=== PATIENT | male | born 1950 ===

== ENCOUNTER 2025-03-29 00:40 | Day surgery (SDC) | payer MEDICARE, SELFPAY ==
[2025-03-28 11:17] VITALS: BMI 25.8
--- OUTSIDE RECORDS SUMMARY | 2025-03-29 00:48 | XMS_ITS | Encounter Summary ---
Author Organization [facility] Address [address] [place] [address] Phone Care Team Providers Care Registered Nurse Hh Case Manager Name Role Phone Jadiel Nielsen MD Primary Care Provider Andi Arceo MD Unavailable [phone] Jadiel Camargo MD Unavailable [phone] Encounter Details Date Type Department Care Team (Late st Contact Info) Description 11/26/2017 Orders Only [facility] Provider, MD Francine [address] [place] [id number] Social History Tobacco Use Types Packs/Day Years Used Date Smoking Tobacco: Never Alcohol Use Standard Drinks/Week Comments Yes 0 (1 standard drink = 0.6 oz pur e alcohol) Sex and Gender Information Value Date Recorded Sex Assigned at Not on file Legal Sex Male 3:35 PM COMMISSIONS ANALYST Gender Identity Not on file Sexual Orientation Straight 08/14/2020 10 :55 AM CDT documented as of this encounter Plan of Treatment Upcoming Encounters Date Type Department Care Team (Late st Contact Info) Description 09/22/2025 7:30 AM COMMISSIONS ANALYST Hospital Encounter [facility] [address] [place] [address] Ernie Richardson, DO [address] [place] [address] [place] [address] 09/22/2025 7:30 AM COMMISSIONS ANALYST - 09/22/2025 8:00 AM COMMISSIONS ANALYST Surgery [facility] [address] [place] [address] Ernie Richardson, 4 [facility] [address] [address] COLONOSCOPY Scheduled Procedures Name Priority Associated Diagnoses Date/Ti me COLONOSCOPY Family history of colon cancer in mother History of colonic polyps Encounter for screening colonoscopy 09/22/2025 7:30 AM COMMISSIONS ANALYST documented as of this encounter Procedures Procedure Name Priority Date/Time Associated Diagnosis Comments DISCHARGE LABORATORY CUMULATIVE REPORT 11/26/2017 12:00 AM COMMISSIONS ANALYST documented in this encounter Results * DISCHARGE LABORATORY CUMULATIVE REPORT (11/26/2017 12:00 AM COMMISSIONS ANALYST) Narrative 11/26/2017 12:00 AM COMMISSIONS ANALYST Ordered by an unspecified provider. us Historical Provider LAB BLOOD ORDERABLES Sarah l Result documented in this encounter Visit Diagnoses Not on filedocumented in this encounter Additional Health Concerns Infection Onset Date Last Indicated Resolved Time COVID: Suspected 06/30/2024 06/30/2024 06/30/2024 9:41 AM CDT documented as of this encounter Care Teams Registered Nurse Hh Case Manager Relationship Specialty Start Date End Date Jadiel Nielsen MD PCP - General 06/13/14 Andi Arceo MD Consulting Physician Cardiovascular Disease 08/02/19 Jadiel Camargo MD Surgeon Orthopedic Surgery 08/03/20 documented as of this encounter
--- OUTSIDE RECORDS SUMMARY | 2025-03-29 00:48 | XMS_ITS | Encounter Summary ---
Author Organization [facility] Healthcare Address [address] [place] [address] Care Team Providers Care Internal Investigator Name Role Phone Jadiel Nielsen MD Primary Care Provider Anid Arceo MD Unavailable [phone] Jadiel Camargo MD Unavailable [phone] Reason for Visit * Reason Onset Date Comments Test Results 02/15/2025 Encounter Details Date Type Department Care Team (Late st Contact Info) Description 02/15/2025 Results Follow-Up [facility] Primary Care at [address] [place] [address] Jadiel Nielsen MD [address] [address] [address] [place] [address] Social History Tobacco Use Types Packs/Day Years Used Date Smoking Tobacco: Never Smokeless Tobacco: Never Alcohol Use Standard Drinks/Week Comments Yes 0 (1 standard drink = 0.6 oz pur e alcohol) socially AUDIT-C Answer Date Recorded Q1: How often do you have a drink containing alcohol? Never 06/10/2024 Q2: How many drinks containi ng alcohol do you have on a typical day when you are drinking? Patient does not drink Q3: How often do you have si x or more drinks on one occasion? Never 06/10/2024 PHQ-2 Answer Date Recorded PHQ-2 Total Score (If total score is 3 or more points, staff should administer the PHQ-9) 0 07/07/2024 Personal Safety Answer Date Recorded Have you ever been in or are you currently in a harmful physical or emotional relationship or is someone making you feel afraid or unsafe? Denies 06/10/2024 Sex and Gender Information Value Date Recorded Sex Assigned at Not on file Legal Sex Male 3:35 PM INFORMATION CLERK CASHIER Gender Identity Not on file Sexual Orientation Straight 08/14/2020 10 :55 AM CDT documented as of this encounter Miscellaneous Notes * Telephone Encounter - Nacho Tadeo - 02/16/2025 8:43 AM CDT Patient aware. * Telephone Encounter - Portia Youssef MA - 02/16/2025 7:44 AM CDT Left message for patient to return call if patient calls back please relay message below. documented in this encounter Plan of Treatment Upcoming Encounters Date Type Department Care Team (Late st Contact Info) Description 09/22/2025 7:30 AM INFORMATION CLERK CASHIER Hospital Encounter [address] [address] Ernie Richardson DO [address] [facility] [address] [place] [id number] 09/22/2025 7:30 AM INFORMATION CLERK CASHIER - 09/22/2025 8:00 AM INFORMATION CLERK CASHIER Surgery [address] [address] Ernie Richardson DO [address] [facility] [address] [place] [address] COLONOSCOPY Scheduled Procedures Name Priority Associated Diagnoses Date/Ti me COLONOSCOPY Family history of colon cancer in mother History of colonic polyps Encounter for screening colonoscopy 09/22/2025 7:30 AM INFORMATION CLERK CASHIER documented as of this encounter Visit Diagnoses Not on filedocumented in this encounter Care Teams Internal Investigator Relationship Specialty Start Date End Date Jadiel Nielsen MD PCP - General 06/13/14 Andi Arceo MD Consulting Physician Cardiovascular Disease 08/02/19 Jadiel Camargo MD Surgeon Orthopedic Surgery 08/03/20 documented as of this encounter
--- OUTSIDE RECORDS SUMMARY | 2025-03-29 00:48 | XMS_ITS | Referral Summary ---
Author Organization [facility] Address [address] [place] [address] Care Team Providers Care Cyber Security Specialist Name Role Phone Jadiel Nielsen MD Primary Care Provider Andi Arceo MD Unavailable [phone] Jadiel Camargo MD Unavailable [phone] Encounters Date Type Department Care Team Description 03/28/2025 Telephone [facility] Cardiology [address] [facility] [address] [place] [phone] Barbra Nelson MD 03/14/2025 Results Follow-Up [facility] Cardiology at [address] [place] [address] Barbra Nelson MD 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 (Primary Dx) 03/10/2025 10:15 AM CDT Ancillary Procedure [facility] [address] [facility] [address] [place] [address] 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; Paroxysmal atrial fibrillation (HCC) 02/15/2025 Results Follow-Up [facility] Primary Care at [place] [address] [facility] [address] [place] [address] Jadiel Nielsen MD 02/15/2025 7:19 AM CDT - 02/15/2025 11:59 PM CDT Hospital Encounter [facility] 1 [place] [address] Family history of cerebral aneurysm; Cerebral aneurysm, nonruptured Discharge Disposition: Discharge to home or self care 02/07/2025 Telephone [facility] Gastroenterology at [address] [place] [phone] Ernie Richardson, 02/04/2025 Orders Only [facility] Primary Care at [address] [phone] Jadiel Nielsen MD Family history of cerebral aneurysm (Primary Dx); Cerebral aneurysm, nonruptured 02/04/2025 Orders Only [facility] Primary Care at [address] [phone] Jadiel Nielsen MD Ascending aortic aneurysm, unspecified whether ruptured (Primary Dx); History of colon polyps; Lung nodule 02/04/2025 Orders Only [facility] Primary Care at [address] [phone] Jadiel Nielsen MD 02/04/2025 2:15 PM CDT Office Visit [facility] Primary Care at [address] [phone] Jadiel Nielsen MD Aneurysm of ascending aorta without rupture (Primary Dx); BMI 27.0-27.9,adult; 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; JI on CPAP; Nodule of apex of right lung 01/27/2025 7:45 AM CDT Lab [address] [address] Urine frequency; Multiple-type hyperlipidemia 01/25/2025 Orders Only [facility] Primary Care at [address] [phone] Jadiel Nielsen MD Multiple-type hyperlipidemia (Primary Dx); Urine frequency 01/25/2025 Telephone [facility] Primary Care at [address] [phone] Jadiel Nielsen MD Additional Services Or Orders 01/24/2025 Telephone [facility] Primary Care at [address] [place] [phone] Jadiel Nielsen MD Appointment Request 01/24/2025 11:45 AM CDT Office Visit [facility] Cardiology [address] [place] [phone] Barbra Nelson MD 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 (Primary Dx); Paroxysmal atrial fibrillation (HCC); Chronic anticoagulation; Multiple-type hyperlipidemia; Pulmonary nodule; Aneurysm of ascending aorta without rupture 01/10/2025 6:00 PM PRODUCER ARBORIST MANAGER Office Visit [facility] Care at [address] [place] [phone] Gloria Dugan NP Acute non-recurrent frontal sinusitis (Primary Dx) 01/10/2025 Nurse Triage [facility] Primary Care at [address] [place] [address] Jadiel Nielsen MD from Last 3 Months Allergies No known active allergies Medications ascorbic acid (VITAMIN C ORAL)Indications:s upplement Take 1 tablet by mouth 2 (two) times a day Active cholecalciferol, vitamin D3, (VITAMIN D3 ORAL)Indications:s upplement Take 1 tablet by mouth every evening Active amoxicillin (AMOXIL) 500 mg tablet/capsule Take 4 tabs by mouth 1 hour before procedure 4 tablet/capsu le 2 1 Active UNABLE TO FINDIndications:OT C prostate supplement Take 1 each by mouth every evening Med Name: Force Factor - Prostate Support Supplement Active apixaban (Eliquis) 5 mg tablet Take 1 tablet (5 mg total) by mouth 2 (two) times a day 180 tablet 1 4 Active rosuvastatin (CRESTOR) 10 mg tabletIndications: 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,Multiple- type hyperlipidemia Take 1 tablet (10 mg total) by mouth daily 30 tablet 11 5 026 Active Active Problems Problem Noted Date Diagnosed Date History of colonic polyps 02/07/2025 Encounter for screening colonoscopy 02/07/2025 Pulmonary nodule 01/24/2025 Aneurysm of ascending aorta without rupture 01/15 Chronic anticoagulation 11/23/2024 Coronary artery disease invo lving nooksack coronary artery of nooksack heart without angina pectoris 11/23/2024 AF (atrial fibrillation) 06/10/2024 Assessment & Plan (07/20/2024 9:28 AM CDT): Symptomatic atrial fibrillation s/p PVI ablation 06/10/2024 He is doing well post ablation without arrhythmia recurrence Stop sotalol Continue Eliquis for stroke risk reduction Assessment & Plan (06/11/2024 10:40 AM CDT): Patient has history of atrial fibrillation on sotalol and Eliquis Patient is status post EP study and ablation for atrial fibrillation EP recommendations: - Anticoagulation plan: can restart AC with Eliquis 5mg bid - PPI:Pantoprazole 40mg daily for next 30 days - Anti-arrhythmic drugs: Continue sotalol until f/u with EP - Bedrest: lift head of bed to 30 degrees immediately, strict bedrest for 4 hours (ending at 5:30pm) then up with assistance thereafter - Continuous telemetry - Strict I/O - ABX prophylaxis: none - Pt denied pain, no active bleeding at R groin site. Ambulated, voided, tolerated diet prior to d/c. Stable for d/c per EP. Atrial fibrillation 03/02/2024 High risk medication use 10/31/2023 History of 2019 novel coronavirus disease (COVID -19) 06/12/2022 Atrial fibrillation, persistent 11/14/2020 Assessment & Plan (11/16/2020 1:34 PM PRODUCER ARBORIST MANAGER): -s/p successful CV this am -pt remains in SR in 50s--will discuss final sotalol dosing with EP staff -QT interval remains stable (approx 450ms) after 6th sotalol dose -metoprolol stopped due to short pauses -continue apixaban -tele -anticipate discharge later today if HR remains stable Assessment & Plan (11/15/2020 8:50 AM PRODUCER ARBORIST MANAGER): - continue sotalol load with 12 lead EKG 2 hrs after each dose to follow QTC - sotalol increased to 120mg bid last evening - metoprolol stopped due to short pauses - strict telemetry - continue apixaban - NPO after midnight for DCCV in am unless he converts prior - follow electrolytes and replete accordingly Assessment & Plan (11/14/2020 11:01 AM PRODUCER ARBORIST MANAGER): - continue sotalol load with 12 lead EKG 2 hrs after each dose to follow QTC - strict telemetry - monitor HR, may need to decrease or stop metoprolol if he becomes bradycardic - continue apixaban - cardioversion prior to discharge unless he converts prior - follow electrolytes and replete accordingly Primary osteoarthritis of left hip 07/17/2020 Overview (07/17/2020): Added automatically from request for surgery [id number] JI on CPAP 05/31/2020 Assessment & Plan (07/20/2024 9:28 AM CDT): Continue CPAP Assessment & Plan (11/16/2020 1:32 PM PRODUCER ARBORIST MANAGER): - continue CPAP Assessment & Plan (11/15/2020 8:48 AM PRODUCER ARBORIST MANAGER): - continue CPAP Assessment & Plan (11/14/2020 10:55 AM PRODUCER ARBORIST MANAGER): - continue CPAP Periodic limb movements of sleep 05/31/2020 Family history of colon cancer in mother 020 Overview (05/05/2020): Added automatically from request for surgery [id number] Personal history of colonic polyps 05/05/2020 Overview (05/05/2020): Added automatically from request for surgery [id number] Skin cancer, basal cell 11/08/2019 Paroxysmal atrial fibrillation 08/17/2019 Atrial flutter by electrocardiogram 08/02/2019 Palpitations 05/15/2017 Encounter for subsequent [facility] wellness visit (AWV) in Medicare patient 05/15/2017 Multiple-type hyperlipidemia 04/02/2014 Overview (02/21/2017): MIXED HYPERLIPIDEMIA Assessment & Plan (07/03/2017 9:34 AM CDT): Switching him back to atorvastatin 20 mg q.h.s. along with heart healthy diet, continuing his moderate exercise daily, and daily aspirin as well. We will recheck his cholesterol here in 6 months to see how it is going. I did advise him that due to equivalent strength of medications atorvastatin 40 mg to be more beneficial for patient. Certainly, we will switch to the higher dose if indicated based upon labs in December. Resolved Problems Problem Noted Date Diagnosed Date Resolved Date BMI 30.0-30.9,adult 07/03/2017 07/05/20 20 Assessment & Plan (07/03/2017 9:34 AM CDT): Recommended patient to continue to increase heart healthy diet with adequate fruits, vegetables, and plenty of water along with mild-moderate daily exercise as tolerated. Urine frequency 05/15/2017 05/18/2018 Epigastric pain 04/02/2014 05/18/2018 Overview (02/19/2017): ABDMNAL PAIN EPIGASTRIC Erythrocytosis 02/27/2010 05/18/2018 Overview (02/19/2017): Polycythemia Immunizations Immunization Administration Dates Next Due Influenza, Quadrivalent, Radha l Culture-based MDCK, Preservative Free, Antibiotic Free, Intramuscular 10/02/2017 Influenza, Quadrivalent, Spl it, Preservative Free, Intramuscular 12/16/2016 Influenza, Trivalent, High D ose, Split, Preservative Free, Intramuscular 09/13/2019,11/24/2018 Influenza, Unspecified 01/17/2023(Deferr ed: Patient Refused),09/11/2021(Deferred: Patient Refused),08/17/2021(Deferred: Patient Refused),08/17/2020(Deferred: Patient Refused),08/17/2020(Deferred: Patient Refused),08/17/2020(Deferred: Patient Refused),08/17/2018(Deferred: Patient Refused),08/17/2018(Deferred: Patient Refused),10/02/2017 Pneumococcal Conjugate PCV 13 05/21/2017 Pneumococcal Polysaccharide PPV23 11/24/2018 Td, adsorbed 05/26/2019 Tdap 02/14/2009 ZOSTER Recombinant 01/30/2020, 0,10/31/2019,10/04 Social History Tobacco Use Types Packs/Day Years Used Date Smoking Tobacco: Never Smokeless Tobacco: Never Tobacco Cessation:Counseling Given: Not Answered Alcohol Use Standard Drinks/Week Comments Yes 0 [...] on file Legal Sex Male 3:35 PM PRODUCER ARBORIST MANAGER Gender Identity Not on file Sexual Orientation Straight 08/14/2020 10 :55 AM CDT Last Filed Vital Signs Vital Sign Reading Time Taken Comments Blood Pressure 122/70 02/04/2025 2:16 PM CDT Pulse 73 02/04/2025 2:16 PM CDT Temperature 36.6 C (97.8 F) 02/04/2025 2:16 PM CDT Respiratory Rate 16 02/04/2025 2:16 PM CDT Oxygen Saturation 97% 02/04/2025 2:16 PM CDT Inhaled Oxygen Concentration - - Weight 90.7 kg (200 lb) 02/04/2025 2:16 PM CDT Height 182.9 cm (6') 02/04/2025 2:16 PM CDT Body Mass Index 27.12 02/04/2025 2:16 PM CDT Plan of Treatment Upcoming Encounters Date Type Department Care Team (Late st Contact Info) Description 09/22/2025 7:30 AM PRODUCER ARBORIST MANAGER Hospital Encounter [address] [address] Ernie Richardson DO [address] [facility] [address] [place] [address] 09/22/2025 7:30 AM PRODUCER ARBORIST MANAGER - 09/22/2025 8:00 AM PRODUCER ARBORIST MANAGER Surgery [address] [address] Ernie Richardson DO [address] [facility] [address] [place] [address] COLONOSCOPY Scheduled Procedures Name Priority Associated Diagnoses Date/Ti me COLONOSCOPY Family history of colon cancer in mother History of colonic polyps Encounter for screening colonoscopy 09/22/2025 7:30 AM PRODUCER ARBORIST MANAGER Medical Devices Implanted Type Area Artificial Inseminator Device Identifier Shelf Expiration Date Model / Serial / Lot [employer] Vascade Mvp 6-12fr Venous Closure [id number] - [id number] - [id number] Implanted:Qty: 1 on 06/10/2024 by Todd Wilkins MD at [facility] Vascular Closure Device Right: Groin [employer] 02/22/2026 [id number]-10 U / [id number] / [id number] [employer] Vascade Mvp 6-12fr Venous Closure [id number] - [id number] - [id number] Implanted:Qty: 1 on 06/10/2024 by Todd Wilkins MD at [facility] Vascular Closure Device Right: Groin [employer] 02/22/2026 800-612C-10 U / [id number] / [id number] [employer] [id number] [place] 56mm 36mm Hip Neutral Liner Acetabular Altrx Sterile Latex Free - [id number] Implanted:Qty: 1 on 08/02/2020 by Jadiel Camargo MD at [facility] Left: Hip [employer] 11/16/2024 [id number] / / [id number] [employer] [id number] [place] 56mm Sector Hip Shell Acetabular Gription Sterile Latex Free - [id number] Implanted:Qty: 1 on 08/02/2020 by Jadiel Camargo MD at [facility] Left: Hip [employer] 06/16/2030 [id number] / / [id number] [employer] [id number] Actis Collar Hip 7 Standard Offset Stem Femoral - [id number] Implanted:Qty: 1 on 08/02/2020 by Jadiel Camargo MD at [facility] Left: Hip [employer] 10/16/2029 [id number] / / [id number] [employer] [id number] Articul/[place] 36mm Cementless Hip +5mm 12/14 [place] Femoral Latex Free - [id number] Implanted:Qty: 1 on 08/02/2020 by Jadiel Camargo MD at 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 Paroxysmal atrial fibrillation (HCC) MRA HEAD WO CONTRAST Schedule Routine, Read Routine (OP Routine) 02/15/2025 8:03 AM CDT Family history of cerebral aneurysm Cerebral aneurysm, nonruptured EGFR Routine 01/27/2025 7:56 AM CDT Multiple-type hyperlipidemia PSA SCREEN Routine 01/27/2025 7:56 AM CDT Urine frequency COMPREHENSIVE METABOLIC PANEL Routine 01/27/2025 7:56 AM CDT Multiple-type hyperlipidemia LIPID PANEL Routine 01/27/2025 7:56 AM CDT Multiple-type hyperlipidemia PSA SCREEN Routine 01/27/2025 7:56 AM CDT Urine frequency COLONOSCOPY 06/05/2020 7:32 AM CDT HEPATITIS C AB REFLEX RNA QUANT PCR Routine 11/26/2017 10:35 AM PRODUCER ARBORIST MANAGER from Last 3 Months or Most Recently Relevant to Health Maintenance Results * STRESS ECHO EXERCISE WO DOPPLER/CF WO CONTRAST (03/10/2025 11:14 AM CDT) Anatomical Region Laterality Modality Ultrasound 03/10/2025 10:2 7 AM CDT Narrative 03/10/2025 12:21 PM CDT [facility] Cardiology [address] [facility] [address] [address], [place] [address] [address] [facility] [address] [place] [address], [place] [address] P:[phone] P:[phone] Echocardiographic Report Patient Name: PATRIZIA OROZCO R : 1950 Study Date: 03/10/2025 10:27:24 AM Gender: M Tech: [facility] Location: [facility] Provider: BARBRA NELSON Height(Cm): 183 BSA: 2.15 Weight(Kg): 90.7 Heart Rate: 65 BP: 119 / 80 Quality: Good Order Provider: BARBRA NELSON PROCEDURES: Stress Echo Report: Treadmill stress echocardiogram. INDICATIONS: Atrial Fibrillation, Coronary Artery Disease, Medications: Crestor, Eliquis, Vitamin C, Vitamin D3, and Stress test monitored by: Miguel Howell. FINDINGS: Stress Echo: Exercise Time - 9.14 min Baseline Heart Rate - 74 Peak Heart Rate - 155 Predicted Maximal Heart Rate - 148 85% MPHR - 126 Baseline BP - 119/80 Peak BP - 146/92 Rate Pressure Product - 05943 METS Achieved - 10.10 Percent Predicted Maximal HR Achieved - 105 % Interpretation Site: Exam was interpreted at [facility]. Performance: Above average exercise functional capacity. Hemodynamic Response: Normal blood pressure response. Arrhythmia: Frequent isolated premature ventricular contraction. Termination: Maximal Predicted HR achieved. Resting ECG: Normal sinus rhythm. Exercise ECG: Normal exercise ECG. Resting LV Function: Normal left ventricular size, normal systolic function, normal wall thickness with no segmental wall motion abnormalities at rest. Post Stress LV Function: Global Systolic Function is normal. Ejection fraction is 60-65%. LV appears to not augment normally post exercise. These segments of the LV are hypokinetic: basal inferior segment and mid inferior segment. CONCLUSIONS: No exercise induced chest pain. No ECG evidence of ischemia. Echocardiographic evidence of ischemia. Electronically Signed By: Barbra Nelson MD 03/10/2025 12:21:17 PM CDT Procedure Note Barbra Nelson MD - 03/10/2025 [facility] Cardiology [address] [facility] [address] [id number] [address] [facility] [address], [place], [place] [address] P:[phone] P:[phone] Echocardiographic Report Patient Name: PATRIZIA OROZCO R : 1950 Study Date: 03/10/2025 10:27:24 AM Gender: M Tech: [facility] Location: [facility] Provider: BARBRA NELSON Height(Cm): 183 BSA: 2.15 Weight(Kg): 90.7 Heart Rate: 65 BP: 119 / 80 Quality: Good Order Provider: BARBRA NELSON PROCEDURES: Stress Echo Report: Treadmill stress echocardiogram. INDICATIONS: Atrial Fibrillation, Coronary Artery Disease, Medications: Crestor,Eliquis, Vitamin C, Vitamin D3, and Stress test monitored by: Miguel Howell. FINDINGS: Stress Echo: Exercise Time - 9.14 min Baseline Heart Rate - 74 Peak Heart Rate - 155 Predicted Maximal Heart Rate - 148 85% MPHR - 126 Baseline BP - 119/80 Peak BP - 146/92 Rate Pressure Product - 32705 METS Achieved - 10.10 Percent Predicted Maximal HR Achieved - 105 % Interpretation Site: Exam was interpreted at [facility]. Performance: Above average exercise functional capacity. Hemodynamic Response: Normal blood pressure response. Arrhythmia: Frequent isolated premature ventricular contraction. Termination: Maximal Predicted HR achieved. Resting ECG: Normal sinus rhythm. Exercise ECG: Normal exercise ECG. Resting LV Function: Normal left ventricular size, normal systolic function, normal wallthickness with no segmental wall motion abnormalities at rest. Post Stress LV Function: Global Systolic Function is normal. Ejection fraction is 60-65%. LVappears to not augment normally post exercise. These segments of the LV are hypokinetic:basal inferior segment and mid inferior segment. CONCLUSIONS: No exercise induced chest pain. No ECG evidence of ischemia. Echocardiographic evidence of ischemia. Electronically Signed By: Barbra Nelson MD 03/10/2025 12:21:17 PM CDT us Barbra Nelson MD CV ECHO PROCEDURES Final Result * MRA Head WO Contrast (02/15/2025 8:03 AM CDT) Anatomical Region Laterality Modality Head and Neck N/A Magnetic Resonan ce 02/15/2025 9:13 AM CDT Narrative 02/15/2025 9:23 AM CDT EXAM DESCRIPTION: MRA HEAD WO CONTRAST REASON FOR STUDY: No provided patient complaints. No provided history of trauma. No provided past medical or surgical history. Family, not personal medical, history of unspecified site aneurysm. TECHNIQUE: Axial 3-D nvqk-[id number]-jenwwt acquisition of the [place]. 3D MIP images rendered on scanning unit and reviewed at time of interpretation. Axial T1 and DWI of the entire brain. Images saved to PACS. COMPARISON: No prior neuroimaging available at time of interpretation. FINDINGS: VASCULATURE: No occlusion, focal stenosis, or aneurysm of the intracranial arterial vasculature. DIFFUSION IMAGING: No restricted diffusion to suggest acute/subacute ischemia or infarct. OTHER: No other significant finding. IMPRESSION: No occlusion, focal stenosis, or aneurysm of the intracranial arterial vasculature. No restricted diffusion to suggest acute/subacute ischemia or infarct. THIS IS AN ELECTRONICALLY VERIFIED FINAL REPORT 02/15/2025 9:23 AM - Electronically signed by David Toscano M.D. CHRISS: CHRISS Report ID: [id number] Reading Location: [place] [address] Procedure Note David Toscano MD - 02/15/2025 EXAM DESCRIPTION: MRA HEAD WO CONTRAST REASON FOR STUDY: No provided patient complaints. No provided history of trauma. No provided past medical or surgical history. Family, notpersonal medical, history of unspecified site aneurysm. TECHNIQUE: Axial 3-D [id number] acquisition of the [place].3D MIP images rendered on scanning unit and reviewed at time ofinterpretation. Axial T1 and DWI of the entire brain. Images saved to PACS. COMPARISON: No prior neuroimaging available at time of interpretation. FINDINGS: VASCULATURE: No occlusion, focal stenosis, or aneurysm of theintracranial arterial vasculature. DIFFUSION IMAGING: No restricted diffusion to suggest acute/subacute ischemia or infarct. OTHER: No other significant finding. IMPRESSION: No occlusion, focal stenosis, or aneurysm of the intracranial arterial vasculature. No restricted diffusion to suggest acute/subacute ischemia or infarct. THIS IS AN ELECTRONICALLY VERIFIED FINAL REPORT 02/15/2025 9:23 AM - Electronically signed by David Toscano M.D. CHRISS: CHRISS Report ID: [id number] Reading Location: [id number] [place] Jadiel Nielsen MD IM MRI PROCEDURES Sarah l Result * eGFR (01/27/2025 7:56 AM CDT) eGFR >90 >=60 mL/min/1. 73 m2 Comment: Interpretive Data Reference Interval Normal >/= 90 mL/min/1.73m2 Mildly decreased* 60 - 89 mL/min/1.73m2 Mildly to moderately decreased 45 - 59 mL/min/1.73m2 Moderately to severely decreased 30 - 44 mL/min/1.73m2 Severely decreased 15 - 29 mL/min/1.73m2 Kidney Failure < 15 mL/min/1.73m2 *Relative to young adult level Estimated glomerular filtration rate is determined by the 2020 CKD-EPI equation recommended by the National Kidney Foundation (A Unifying Approach to GFR Estimation: Recommendations of the NKF-ASK Task Force on Reassessing the Inclusion of Race in Diagnosing Kidney Disease, JASN 2020). The CKD-EPI equation should not be used for patients with unstable renal function and has not been validated in children and those over 70. Current interpretive data was last reviewed 2021. Blood 01/27/2025 7:56 AM CDT 01/27/2025 8:19 AM CDT Jadiel Nielsen MD LAB BLOOD ORDERABLES Fi nal Result Performing Organization Address [facility] de Phone Number [facility]) [address] [facility] [place] [place] [id number] * PSA screen (01/27/2025 7:56 AM CDT) PSA-Total 1.73 <=6.20 ng/mL Comment: Interpretive Data AGE SEX REFERENCE INTERVAL 0 minutes-150 years Female None 0 minutes-49 years Male None 50-59 years Male 0-3.90 60-69 years Male 0-5.40 70-79 years Male 0-6.20 80-150 years Male 0-6.20 The [employer] PSA Total assay procedure was used. Results from different manufacturers or methods may not be comparable. Serial testing should be performed using the same method. Current interpretive data last revised 22. Blood 01/27/2025 7:56 AM CDT 01/27/2025 8:19 AM CDT Jadiel Nielsen MD LAB BLOOD ORDERABLES Fi nal Result Performing Organization Address [facility] de Phone Number [facility]) [address] [facility] Department [place] [address] * PSA screen (01/27/2025 7:56 AM CDT) PSA-Total 1.74 <=6.20 ng/mL Comment: Interpretive Data AGE SEX REFERENCE INTERVAL 0 minutes-150 years Female None 0 minutes-49 years Male None 50-59 years Male 0-3.90 60-69 years Male 0-5.40 70-79 years Male 0-6.20 80-150 years Male 0-6.20 The [employer] PSA Total assay procedure was used. Results from different manufacturers or methods may not be comparable. Serial testing should be performed using the same method. Current interpretive data last revised 22. Blood 01/27/2025 7:56 AM CDT 01/27/2025 8:19 AM CDT us Jadiel Nielsen MD LAB BLOOD ORDERABLES [facility] Result [facility] ([place]) [address] [place] [address] Department [place] [address] * Lipid panel (01/27/2025 7:56 AM CDT) Cholesterol 175 30 - 199 mg/dL Comment: Interpretive Data Ages < or = 19 years Acceptable: <170 mg/dL Borderline high: 170-199 mg/dL High: >or= 200 mg/dL Ages > or = 20 years Desirable: <200 mg/dL Borderline high: 200-239 mg/dL High: >or= 240 mg/dL Literature References: 1. Expert Panel on Integrated Guidelines for Cardiovascular Health and Risk Reduction in Children and Adolescents. Pediatrics 2011;128:S213 2. NCEP Expert Panel. Circulation 2004;110:227 Current Interpretive Data was last revised on 2018. Triglycerides 79 <=149 mg/dL [facility] ([place]) Comment: Interpretive Data Ages < or = 9 years Acceptable: <75 mg/dL Borderline high: 75-99 mg/dL High: >or= 100 mg/dL Ages 10 to 20 years Acceptable: <90 mg/dL Borderline high: 90-129 mg/dL High: >or= 130 mg/dL Ages > or = 20 years Desirable: <150 mg/dL Borderline high: 150-199 mg/dL High: 200-499 mg/dL Very high: >or= 499 mg/dL Literature References: 1. Expert Panel on Integrated Guidelines for Cardiovascular Health and Risk Reduction in Children and Adolescents. Pediatrics 2011;128:S213 2. NCEP Expert Panel. Circulation 2004;110:227 Current Interpretive Data was last revised on 2018. HDL 44 >=40 mg/dL CHENG [facility]ENS[facility]) Comment: Interpretive Data Ages < or = 19 years Acceptable: >45 mg/dL Borderline low: 40-45 mg/dL Low: <40 mg/dL Ages > or = 20 years Desirable: >or= 60 mg/dL Low: <40 mg/dL Literature References: 1. Expert Panel on Integrated Guidelines for Cardiovascular Health and Risk Reduction in Children and Adolescents. Pediatrics 2011;128:S213 2. NCEP Expert Panel. Circulation 2004;110:227 Current Interpretive Data was last revised on 2018. LDL, calculated 116 <=129 mg/dL [facility] ([place]) Comment: Interpretive Data Ages < or = 19 years Acceptable: <110 mg/dL Borderline high: 110-129 mg/dL High: >or= 130 mg/dL Ages > or = 20 years Optimal: <100 mg/dL Near optimal: 100-129 mg/dL Borderline high: 130-159 mg/dL High: >160 mg/dL Calculated using the Michele LDL-C estimating equation. This equation was implemented on 2024. Prior to this date LDL-C was estimated using the Friedewald equation. Literature References: 1. Expert Panel on Integrated Guidelines for Cardiovascular Health and Risk Reduction in Children and Adolescents. Pediatrics 2011;128:S213 2. NCEP Expert Panel. Circulation 2004;110:227 3. Michele Denise et al. SOHAIL Cardiol. 2020 March 17;5(5):540-548. doi: 10.1001/jamacardio.2020.0013 Current Interpretive Data was last revised on 2024. Non-HDL Cholesterol 131 mg/dL [facility] ([place]) Comment: Interpretive Data Ages < or = 19 years Acceptable: <120 mg/dL Borderline high: 120-144 mg/dL High: >145 mg/dL Ages > or = 20 years When triglycerides are >200 mg/dL, Non-HDL cholesterol is a secondary target of therapy with treatment goals that are 30 mg/dL greater than the LDL cholesterol target. Literature References: 1. Expert Panel on Integrated Guidelines for Cardiovascular Health and Risk Reduction in Children and Adolescents. Pediatrics 2011;128:S213 2. NCEP Expert Panel. Circulation 2004;110:227 Current Interpretive Data was last revised on 2018. Chol/HDL ratio 4 [facility] ([place]) Blood 01/27/2025 7:56 AM CDT 01/27/2025 8:19 AM CDT us Jadiel Nielsen MD LAB BLOOD ORDERABLES Fi nal Result [facility] ([place]) [facility] Department [place] [address] * Comprehensive metabolic panel (01/27/2025 7:56 AM CDT) Sodium 139 135 - 145 mmol/L Potassium, pl 4.0 3.3 - 4.9 mmol/L [facility] ([place]) Chloride 104 97 - 110 mmol/L [facility] ([place]) CO2 25 22 - 32 mmol/L [facility] ([place]) Anion gap 10 2 - 15 mmol/L [facility] ([place]) BUN 19 6 - 25 mg/dL [facility] ([place]) Creatinine 0.80 0.80 - 1.30 mg/dL [facility] ([place]) Comment:Icteric sample, test results may be affected. Glucose 93 70 - 199 mg/dL [facility] ([place]) Comment: Interpretive Data Fasting glucose >/= 126 mg/dl is diagnostic for diabetes. Fasting is defined as no caloric intake for at least 8 hours. Fasting glucose between 100 mg/dl to 125 mg/dl is diagnostic of prediabetes. In a patient with classic symptoms of hyperglycemia or hyperglycemic crisis, a random glucose >/= 200 mg/dl is diagnostic for diabetes. In the absence of unequivocal hyperglycemia, results should be confirmed by repeat testing. The classification and Diagnosis of Diabetes Diabetes Care 2021; 46: S19-S40. Current interpretive data was last revised 2022. Calcium 9.5 8.5 - 10.3 mg/dL [facility] ([place]) Bilirubin, total 1.2 0.1 - 1.2 mg/dL [facility] ([place]) Protein, pl 6.9 6.5 - 8.5 g/dL [facility] ([place]) Albumin 4.3 3.5 - 5.0 g/dL [facility] ([place]) Alk phos 84 40 - 130 Units/L [facility] ([place]) ALT 13 7 - 55 Units/L [facility] ([place]) AST 15 10 - 50 Units/L [facility] ([place]) Blood 01/27/2025 7:56 AM CDT 01/27/2025 8:19 AM CDT Narrative [id number]|2025-03-29 00:48:00|2025-03-29 00:48:00|XMS_ITS|LUCERO RICKS|External Medical Summaries|[id number]|" Encounter Summary Created on: March 29, 2025 Patrizia Orozco : 1950 Sex: Male Author Organization [facility] Healthcare Address [address] [place] [address] Care Team Providers Care Cyber Security Specialist Name Role Phone Jadiel Nielsen MD Primary Care Provider Andi Arceo MD Unavailable [phone] Jadiel Camargo MD Unavailable [phone] Encounter Details Date Type Department Care Team (Late st Contact Info) Description 03/28/2025 Telephone [facility] Cardiology [address] [place] [address] Barbra Nelson MD [facility] Franny [facility] [place] [address] Social History Tobacco Use Types Packs/Day Years [...] on file Legal 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 * Telephone Encounter - Barbra Howell RN - 03/28/2025 2:35 PM CDT SWATHI WASHBURN LM on VM. Spoke to pt spouse. Advised that we had received a denial for the [facility] from their insurance and we are in the process of the appeal, but that his procedure tomorrow would unfortunately need to be postponed. Pt spouse verbalizes understanding. Pt will resume Elimario cheloselina. * Telephone Encounter - Barbra Howell RN - 03/28/2025 9:57 AM CDT LM on to call back to discuss insurance denial. * Telephone Encounter - Odalys Nolasco - 03/28/2025 8:59 AM CDT Pt denial due to symptoms not including chest pain in addition to abnormal test results. No P2P is available. I can appeal the decision, but it will take some time to get the approval. [facility] will have to be canceled for right now. I did not notify the pt yet. I will get started on the appeal letter this afternoon. * Telephone Encounter - Tamara Samuel RN - 03/28/2025 8:40 AM CDT Will forward to Dorie for assistance please. Thank you! * Telephone Encounter - Robina Thakkar - 03/28/2025 8:16 AM CDT Whitney quintana/ [facility] called stating that the pts cardiac cath that is scheduled tomorrow has been denied by the pts insurance. Please advise Thank you Contact: documented in this encounter Plan of Treatment Upcoming Encounters Date Type Department Care Team (Late st Contact Info) Description 09/22/2025 7:30 AM PRODUCER ARBORIST MANAGER Hospital Encounter [facility] [address] [place] [address] Ernie Richardson, DO [address] [place] [address] [address] [place] [address] 09/22/2025 7:30 AM PRODUCER ARBORIST MANAGER - 09/22/2025 8:00 AM PRODUCER ARBORIST MANAGER Surgery [facility] [address] [place] [id number] Ernie Richardson, DO [address] [facility] [address] [place] [address] COLONOSCOPY Scheduled Procedures Name Priority Associated Diagnoses Date/Ti me COLONOSCOPY Family history of colon cancer in mother History of colonic polyps Encounter for screening colonoscopy 09/22/2025 7:30 AM PRODUCER ARBORIST MANAGER documented as of this encounter Visit Diagnoses Not on filedocumented in this encounter Care Teams Cyber Security Specialist Relationship Specialty Start Date End Date Jadiel Nielsen MD PCP - General 06/13/14 Andi Arceo MD Consulting Physician Cardiovascular Disease 08/02/19 Jadiel Camargo MD Surgeon Orthopedic Surgery 08/03/20 documented as of this encounter "
--- OUTSIDE RECORDS SUMMARY | 2025-03-29 00:48 | XMS_ITS | Clinical Summary ---
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,Multiple- type hyperlipidemia Take 1 tablet (10 mg total) by mouth daily 30 tablet 11 5 026 Active Active Problems Problem Noted Date Diagnosed Date History of colonic polyps 02/07/2025 Encounter for screening colonoscopy 02/07/2025 Pulmonary nodule 01/24/2025 Aneurysm of ascending aorta without rupture 01/15 Chronic anticoagulation 11/23/2024 Coronary artery disease invo lving la posta coronary artery of la posta heart without angina pectoris 11/23/2024 AF (atrial [...] 11/14/2020 Assessment & Plan (11/16/2020 1:34 PM PIPE CHANGER): -s/p successful CV this am -pt remains in SR in 50s--will discuss final sotalol dosing with EP staff -QT interval remains stable (approx 450ms) after 6th sotalol dose -metoprolol stopped due to short pauses -continue apixaban -tele -anticipate discharge later today if HR remains stable Assessment & Plan (11/15/2020 8:50 AM PIPE CHANGER): - continue sotalol load with 12 lead EKG 2 hrs after each dose to follow QTC - sotalol increased to 120mg bid last evening - metoprolol stopped due to short pauses - strict telemetry - continue apixaban - NPO after midnight for DCCV in am unless he converts prior - follow electrolytes and replete accordingly Assessment & Plan (11/14/2020 11:01 AM PIPE CHANGER): - continue sotalol load with 12 lead [...] (07/17/2020): Added automatically from request for surgery [id number] JI on CPAP 05/31/2020 Assessment & Plan (07/20/2024 9:28 AM CDT): Continue CPAP Assessment & Plan (11/16/2020 1:32 PM PIPE CHANGER): - continue CPAP Assessment & Plan (11/15/2020 8:48 AM PIPE CHANGER): - continue CPAP Assessment & Plan (11/14/2020 10:55 AM PIPE CHANGER): - continue CPAP Periodic limb movements of sleep 05/31/2020 Family history of colon cancer in mother 020 Overview (05/05/2020): Added automatically from request for surgery [id number] Personal history of colonic polyps 05/05/2020 Overview (05/05/2020): Added automatically from request for surgery [id number] Skin cancer, basal cell 11/08/2019 Paroxysmal atrial fibrillation 08/17/2019 Atrial flutter by electrocardiogram 08/02/2019 Palpitations 05/15/2017 Encounter for subsequent [facility] wellness visit (AWV) in Medicare patient 05/15/2017 [...] EPIGASTRIC Erythrocytosis 02/27/2010 05/18/2018 Overview (02/19/2017): Polycythemia Encounters Date Type Department Care Team Description 03/28/2025 Telephone [facility] Cardiology [address] [facility] [address] [place] [phone] Barbra Nelson MD 03/14/2025 Results Follow-Up [facility] Cardiology at [address] [place] [address] Barbar Nelson MD 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 [address] [place] [address] Family history of cerebral aneurysm; Cerebral aneurysm, nonruptured Discharge Disposition: Discharge to home or self care 02/15/2025 Results Follow-Up [facility] Primary Care at [address] [place] [address] Jadiel Nielsen MD 02/07/2025 Telephone [facility] Gastroenterology at [address] [place] [phone] Ernie Richardson, 02/04/2025 2:15 PM CDT Office Visit [facility] Primary Care at [address] [place] [phone] Jadiel Nielsen MD Aneurysm of ascending aorta without rupture (Primary Dx); BMI 27.0-27.9,adult; 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; JI on CPAP; Nodule of apex of right lung 02/04/2025 Orders Only [facility] Primary Care at [address] [place] [address] Jadiel Nielsen MD Family history of cerebral aneurysm (Primary Dx); Cerebral aneurysm, nonruptured 02/04/2025 Orders Only [facility] Primary Care at [address] [place] [address] Jadiel Nielsen MD Ascending aortic aneurysm, unspecified whether ruptured (Primary Dx); History of colon polyps; Lung nodule 02/04/2025 Orders Only [facility] Primary Care at [address] [place] [address] Jadiel Nielsen MD 01/27/2025 7:45 AM CDT Lab [address] [address] Urine frequency; Multiple-type hyperlipidemia 01/25/2025 Orders Only [facility] Primary Care at [address] [phone] Jadiel Nielsen MD Multiple-type hyperlipidemia (Primary Dx); Urine frequency 01/25/2025 Telephone [facility] Primary Care at [address] [place] [phone] Jadiel Nielsen MD Additional Services Or Orders 01/24/2025 11:45 AM CDT Office Visit [facility] Cardiology [address] [place] [phone] Barbra Nelson MD 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 Care at [address] [place] [phone] Gloria Dugan NP Acute non-recurrent frontal sinusitis (Primary Dx) 01/10/2025 Nurse Triage [facility] Primary Care at [address] [place] [phone] Jadiel Nielsen MD from Last 3 Months Immunizations Immunization Administration Dates Next Due Influenza, [...] 05/26/2019 Tdap 02/14/2009 ZOSTER Recombinant 01/30/2020, 0,10/31/2019,10/04 Surgical History Surgery Date Site/Laterality Comments CHOLECYSTECTOMY cholecystectomy OTHER SURGICAL HISTORY incisional hernia repair (from gallbladder surgery) POLYPECTOMY COLONOSCOPY 05/09/2015 HERNIA REPAIR TONSILLECTOMY TOTAL HIP ARTHROPLASTY Left LASIK both eyes 1997 ABDOMINAL SURGERY 1988 Gal Bladder & Hernia repair with gortex patch Medical History Medical History Date Comments Hx Other Medical 01-OPTHALMOLOGI ST Hx Other Medical organic impoten ce Psoriasis Psoriasis Hx Other Medical snake bite rt l eg A-fib (HCC) 08/02/2019 Colon polyp Hyperlipidemia History of left hip replacement Sleep apnea Arthritis left hip and left knee Family History Medical History Relation Name Comments Cancer Brother 2 Miguel Orozco Other Brother 2 Miguel Orozco Alive and well; Coronary artery disease Father Devine Ernesto Heart attack Father Devine Ernesto Heart failure Father Devine Ernesto Other Father Devine Ernesto ; Sudden Cardiac Father Devine Ernesto Anuerysm Mother Rosa Orozco Aneurysm; /Ane urysm; Arthritis Mother Rosa Orozco Cancer Mother Rosa Orozco Colon cancer Mother Rosa Orozco Cancer -colon; Cause of : Cancer -colon Other Mother Rosa Orozco ; Hearing loss Sister Kim Gerardo Mental illness Sister Kim Gerardo Anesthesia problems Neg Hx Malig Hyperthermia Neg Hx Pseudochol deficiency Neg Hx Relation Name Status Comments Brother 1 Alive Brother 2 Miguel Orozco Father Devine Ernesto Mother Rosa Orozco (Age 78) Sister Kim Orozco Akin Social History Tobacco Use Types Packs/Day Years [...] you are drinking? Patient does not drink 4 Q3: How often do you have si [...] on file Legal Sex Male 3:35 PM PIPE CHANGER Gender Identity Not on file Sexual Orientation Straight 08/14/2020 10 :55 AM CDT Obstetrics History Last Filed Vital Signs Vital Sign Reading [...] st Contact Info) Description 09/22/2025 7:30 AM PIPE CHANGER Hospital Encounter [address] [address] Ernie Richardson DO [address] [facility] [place] [address] 09/22/2025 7:30 AM PIPE CHANGER - 09/22/2025 8:00 AM PIPE CHANGER Surgery [address] [address] Ernie Richardson DO [address] [facility] [place] [address] COLONOSCOPY Scheduled Procedures Name Priority Associated Diagnoses Date/Ti me COLONOSCOPY Family history of colon cancer in mother History of colonic polyps Encounter for screening colonoscopy 09/22/2025 7:30 AM PIPE CHANGER Health Maintenance Due Date Last Done Comments Hepatitis B Screening 1968 Colon Cancer Screening-Colonoscopy 06/05/2025 06/05/2020, 05/09/2015, 05/09/2015, Additional history exists Depression Screening 07/07/2025 07/07/2024, 07/01/2023, 06/12/2022, Additional history exists Fall Risk Assessment 07/07/2025 07/07/2024, 06/11/2024, 07/01/2023, Additional history exists Well Visit 65+ 07/07/2025 07/07/2024, 06/17, 06/12/2022, Additional history exists Prostate Cancer Screening-PSA 01/27/2026, 01/27/2025, 06/30/2024, Additional history exists DTaP/Tdap/Td Vaccine (3 - Td or Tdap) 05/26/2029 05/26/2019, 02/14/2009 Hepatitis C Screening Completed 11/26/2017 Pneumococcal vaccine 65+ Completed 11/24/2018, 03/2017 Influenza Vaccine Discontinued 09/13/2019, , 10/02/2017, Additional history exists Zoster Vaccine Completed 01/30/2020, 05/2020, 10/31/2019, Additional history exists Colon Cancer Screening-CT Colonography Discontinued 06/05/2020, 05/09/2015, 05/09/2015, Additional history exists Colon Cancer Screening-DNA Stool Discontinued 06/05/2020, 05/09/2015, 05/09/2015, Additional history exists Colon Cancer Screening-FIT Discontinued 06/05, 05/09/2015, 05/09/2015, Additional history exists Colon Cancer Screening-Sigmoidoscopy Discontinued 06/05/2020, 05/09/2015, 05/09/2015, Additional history exists Medical Devices Implanted Type Area Wharf Tender Helper Device Identifier Shelf Expiration Date Model / Serial / Lot [employer] Vascade Mvp 6-12fr Venous Closure [id number] - [id number] - [id number] Implanted:Qty: 1 on 06/10/2024 by Todd Wilkins MD at [facility] Cl[facility] Device Right: Groin [employer] 02/22/2026 800-612C-10 U / [id number] / [id number] [employer] Vascade Mvp 6-12fr Venous Closure [id number] - [id number] - [id number] Implanted:Qty: 1 on 06/10/2024 by Todd Wilkins MD at [facility] Closure Device Right: Groin [employer] 02/22/2026 800-612C-10 U / [id number] / [id number] [employer] [id number] [place] 56mm 36mm Hip Neutral Liner Acetabular Altrx Sterile Latex Free - [id number] Implanted:Qty: 1 on 08/02/2020 by Jadiel Camargo MD at [facility] Left: Hip [employer] 11/16/2024 [id number] / / [id number] [employer] [id number] [place] 56mm Sector Hip Shell Acetabular Gription Sterile Latex Free - [id number] Implanted:Qty: 1 on 08/02/2020 by Jadiel Camargo MD at [facility] Left: Hip [employer] 06/16/2030 [id number] / / [id number] [employer] [id number] Actis Collar Hip 7 Standard Offset Stem Femoral - [id number] Implanted:Qty: 1 on 08/02/2020 by Jadiel Camargo MD at [facility] Left: Hip [employer] 10/16/2029 [id number] / / [id number] [employer] [id number] Articul/Eitan 36mm Cementless Hip +5mm 12/14 Taper Head Femoral Latex Free - [id number] Implanted:Qty: 1 on 08/02/2020 by Jadiel Camargo MD at [facility] Left: Hip [employer] 03/16/2025 [id number] / / [id number] Procedures Procedure Name Priority Date/Time Associated Diagnosis Comments STRESS ECHO EXERCISE WO DOPPLER/CF WO CONTRAST Routine 03/10/2025 11:14 AM CDT 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 Paroxysmal atrial fibrillation [...] RNA QUANT PCR Routine 11/26/2017 10:35 AM PIPE CHANGER from Last 3 Months or Most Recently Relevant to Health Maintenance Results * STRESS ECHO EXERCISE WO DOPPLER/CF WO CONTRAST (03/10/2025 11:14 AM CDT) Anatomical Region Laterality Modality Ultrasound 03/10/2025 10:2 7 AM CDT Narrative 03/10/2025 12:21 PM CDT [facility] Cardiology [address] [facility] [address] [address] [address] [facility] [address] [address] P:[phone] P:[phone] Echocardiographic Report Patient Name: PATRIZIA OROZCO R : 1950 Study Date: 03/10/2025 10:27:24 AM Gender: M Tech: [facility] Location: [facility] Provider: BARBRA NELSON Height(Cm): 183 BSA: 2.15 [...] BP - 146/92 Rate Pressure Product - 53863 METS Achieved - 10.10 Percent Predicted Maximal HR Achieved - 105 % Interpretation Site: Exam was interpreted at [facility]. Performance: Above average exercise functional capacity. Hemodynamic [...] Procedure Note Barbra Nelson MD - 03/10/2025 [facility] Cardiology [address] [facility] [address] [address] [address] [facility] [address], [place] [address] P:[phone] P:[phone] Echocardiographic Report Patient Name: PATRIZIA OROZCO Christiano : 1950 Study Date: 03/10/2025 10:27:24 AM Gender: M Tech: NATASHA Location: [place] Ref Provider: BARBRA NELSON Height(Cm): 183 BSA: 2.15 [...] BP - 146/92 Rate Pressure Product - 05055 METS Achieved - 10.10 Percent Predicted Maximal HR Achieved - 105 % Interpretation Site: Exam was interpreted at [facility]. Performance: Above average exercise functional capacity. Hemodynamic [...] of unspecified site aneurysm. TECHNIQUE: Axial 3-D dqdi-vz-roijzk acquisition of the [place]. 3D MIP images rendered on [...] David Toscano M.D. CHRISS: CHRISS Report ID: [id number] Reading Location: [id number] Procedure Note David Toscano MD - 02/15/2025 EXAM DESCRIPTION: MRA HEAD WO CONTRAST REASON FOR STUDY: No provided patient complaints. No provided history of trauma. No provided past medical or surgical history. Family, notpersonal medical, history of unspecified site aneurysm. TECHNIQUE: Axial 3-D xclj-gq-kqolcp acquisition of the [place].3D MIP images rendered on scanning [...] David Toscano M.D. CHRISS: CHRISS Report ID: [id number] Reading Location: [place] [address] [place] Jadiel Nielsen MD IMG MRI PROCEDURES Sarah l Result * eGFR [...] MD LAB BLOOD ORDERABLES Fi nal Result CHENG DE LA PAZ [place]) [address] [employer] [place] [facility] Department [place] [address] * PSA screen (01/27/2025 7:56 AM CDT) [...] Organization Address [facility] de Phone Number CHENG DE LA PAZ [address] [place] [address] * PSA screen (01/27/2025 7:56 AM CDT) [...] ORDERABLES Fi nal Result Performing Organization Address City/[facility] Co de Phone Number CHENG DE LA PAZ [address] [place] [address] * Lipid panel (01/27/2025 7:56 AM CDT) [...] 2018. Triglycerides 79 <=149 mg/dL CHENG DE LAP [place] ([place]) Comment: Interpretive Data Ages < or [...] on 2018. HDL 44 >=40 mg/dL CHENG [place] ([place]) Comment: Interpretive Data Ages < or [...] 3. Michele Denise et al. SOHAIL Cardiol. 2019March 17;5(5):540-548. doi: 10.1001/jamacardio.2020.0013 Current Interpretive Data was last revised on 2024. Non-HDL Cholesterol 131 mg/dL [facility]ENG [facility] [id number]|2025-03-29 00:48:00|2025-03-29 00:48:00|XMS_ITS|BKG DAEMON|External Medical Summaries|[id number]|" Oncology Summary Created on: March 29, 2025 Patrizia Orozco : 1950 Sex: Male Author Organization [facility] Address [address] [place] [address] Care Team Providers Care Glass Novelty Maker Name Role Phone Jadiel Nielsen MD Primary Care Provider Andi Arceo MD Unavailable [phone] Jadiel Camargo MD Unavailable [phone] Active Problems Problem Noted Date Diagnosed Date History of colonic polyps 02/07/2025 Encounter for screening colonoscopy 02/07/2025 Pulmonary nodule 01/24/2025 Aneurysm of ascending aorta without rupture 01/15 Chronic anticoagulation 11/23/2024 Coronary artery disease invo lving la posta coronary artery of la posta heart without angina pectoris 11/23/2024 AF (atrial [...] 11/14/2020 Assessment & Plan (11/16/2020 1:34 PM PIPE CHANGER): -s/p successful CV this am -pt remains in SR in 50s--will discuss final sotalol dosing with EP staff -QT interval remains stable (approx 450ms) after 6th sotalol dose -metoprolol stopped due to short pauses -continue apixaban -tele -anticipate discharge later today if HR remains stable Assessment & Plan (11/15/2020 8:50 AM PIPE CHANGER): - continue sotalol load with 12 lead EKG 2 hrs after each dose to follow QTC - sotalol increased to 120mg bid last evening - metoprolol stopped due to short pauses - strict telemetry - continue apixaban - NPO after midnight for DCCV in am unless he converts prior - follow electrolytes and replete accordingly Assessment & Plan (11/14/2020 11:01 AM PIPE CHANGER): - continue sotalol load with 12 lead [...] (07/17/2020): Added automatically from request for surgery [id number] JI on CPAP 05/31/2020 Assessment & Plan (07/20/2024 9:28 AM CDT): Continue CPAP Assessment & Plan (11/16/2020 1:32 PM PIPE CHANGER): - continue CPAP Assessment & Plan (11/15/2020 8:48 AM PIPE CHANGER): - continue CPAP Assessment & Plan (11/14/2020 10:55 AM PIPE CHANGER): - continue CPAP Periodic limb movements of sleep 05/31/2020 Family history of colon cancer in mother 020 Overview (05/05/2020): Added automatically from request for surgery [id number] Personal history of colonic polyps 05/05/2020 Overview (05/05/2020): Added automatically from request for surgery [id number] Skin cancer, basal cell 11/08/2019 Paroxysmal atrial fibrillation 08/17/2019 Atrial flutter by electrocardiogram 08/02/2019 Palpitations 05/15/2017 Encounter for subsequent [facility] wellness visit (AWV) in Medicare patient 05/15/2017 [...] if indicated based upon labs in December. Current Treatment and Therapy Plans No current plan information found. Past Treatment and Therapy Plans No past plan information found. Lifetime Dose Tracking * Chemical Lifetime Dose Automatic Entry Manual Entr y Fluoro Time 0.182 minutes 0.182 minutes 0 minutes Air kerma at the reference point (Ka,r) 1.19 mGy 1 .19 mGy 0 mGy DLP 2,234 mGycm 2,234 mGycm 0 mGycm Resolved Problems Problem Noted Date Diagnosed Date [...] EPIGASTRIC Erythrocytosis 02/27/2010 05/18/2018 Overview (02/19/2017): Polycythemia "
--- OUTSIDE RECORDS SUMMARY | 2025-03-29 00:48 | XMS_ITS | Encounter Summary ---
Author Organization [facility] Address [address] [place] [address] Phone Care Team Providers Care Supervisor [employer] Name Role Phone Jadiel Nielsen MD Primary Care Provider Andi Arceo MD Unavailable [phone] Jadiel Camargo MD Unavailable [phone] Encounter Details Date Type Department Care Team (Late st Contact Info) Description 01/07/2018 Orders Only [facility] Provider, MD Francine [address] [place] [address] Social History Tobacco Use Types Packs/Day Years Used Date Smoking Tobacco: Never Smokeless Tobacco: Never Alcohol Use Standard Drinks/Week Comments Yes 0 (1 standard drink = 0.6 oz pur e alcohol) Sex and Gender Information Value Date Recorded Sex Assigned at Not on file Legal Sex Male 3:35 PM POULTRY EVISCERATOR Gender Identity Not on file Sexual Orientation Straight 08/14/2020 10 :55 AM CDT documented as of this encounter Plan of Treatment Upcoming Encounters Date Type Department Care Team (Late st Contact Info) Description 09/22/2025 7:30 AM POULTRY EVISCERATOR Hospital Encounter [facility] [address] [place] [address] Ernie Richardson, DO [address] [place] [address] [place] [address] 09/22/2025 7:30 AM POULTRY EVISCERATOR - 09/22/2025 8:00 AM POULTRY EVISCERATOR Surgery [facility] [address] [place] [address] Ernie Richardson, DO [address] [address] COLONOSCOPY Scheduled Procedures Name Priority Associated Diagnoses Date/Ti me COLONOSCOPY Family history of colon cancer in mother History of colonic polyps Encounter for screening colonoscopy 09/22/2025 7:30 AM POULTRY EVISCERATOR documented as of this encounter Procedures Procedure Name Priority Date/Time Associated Diagnosis Comments DISCHARGE LABORATORY CUMULATIVE REPORT 01/07/2018 12:00 AM POULTRY EVISCERATOR documented in this encounter Results * DISCHARGE LABORATORY CUMULATIVE REPORT (01/07/2018 12:00 AM POULTRY EVISCERATOR) Narrative 01/07/2018 12:00 AM POULTRY EVISCERATOR Ordered by an unspecified provider. us Historical Provider LAB BLOOD ORDERABLES Sarah l Result documented in this encounter Visit Diagnoses Not on filedocumented in this encounter Additional Health Concerns Infection Onset Date Last Indicated Resolved Time COVID: Suspected 06/30/2024 06/30/2024 06/30/2024 9:41 AM CDT documented as of this encounter Care Teams Supervisor [employer] Relationship Specialty Start Date End Date Jadiel Nielsen MD PCP - General 06/13/14 Andi Arceo MD Consulting Physician Cardiovascular Disease 08/02/19 Jadiel Camargo MD Surgeon Orthopedic Surgery 08/03/20 documented as of this encounter
[2025-04-01] VITALS (13 sets, daily range): BP systolic 103–117; BP diastolic 53–91; PULSE 64–77; RESP 14–21; TEMP 36.5; O2SAT 89–97
[2025-04-01 08:43] LABS: Hemoglobin 16.7 g/dL (14.0-18.0); Mean Corpuscular HGB Conc 34.1 g/dl (32-36); Mean Corpuscular Hemoglobin 29.5 pg (26-34); Mean Corpuscular Volume 86.6 fl (80-100); Mean Platelet Volume 9.5 fl (7.4-10.4); Platelet Count Result 201 k/mm3 (150-375); Red Blood Count 5.66 M/mm3 (4.6-6.20); Red Cell Distribution Width 13.9 % (11.5-14.5); White Blood Count 8.2 K/mm3 (4.5-10.0)
[2025-04-01 08:50] LABS: Anion Gap 11 mmol/L (4-12); Blood Urea Nitrogen 27 mg/dL (9-20); Calcium 9.2 mg/dL (8.4-10.2); Carbon Dioxide 23 mmol/L (22-30); Chloride 104 mmol/L (98-107); Estimated CRCL calculation 88 ml/min; Estimated Glomerular Filt Rate > 60; Glucose 95 mg/dL (65-110); Potassium 3.9 mmol/L (3.4-5.0); Sodium 138 mmol/L (137-145)
--- NOTE | 2025-04-01 09:42 | PM.IMHP ---
H&P: HPI History of Present Illness Date/Time: 04/01/25 09:42 Chief Complaint: Abnormal stress test Narrative: Eliezer is a 75 year old male with coronary artery calcifications, atrial fibrillation who is referred for [facility] for abnormal stress test. Review of Systems Review of Systems: All systems reviewed & are unremarkable except as noted in HPI and below (HPI) FORMERLY [facility], 1928–1983 Social History Social History Smoking status: Former smoker Tobacco type: pipe Alcohol intake: never Substance use: never Substance use type: does not use Living arrangements: with family Spiritual care concerns: No Meds Home Medications and Allergies Home Medications Medication Instructions Recorded Confirmed Type apixaban 5 mg tablet (Eliquis) 5 mg PO Q12H 03/28/25 03/28/25 History rosuvastatin 10 mg tablet 10 mg PO DAILY 03/28/25 03/28/25 History Allergies Allergy/AdvReac Type Severity Reaction Status Date / Time No Known Allergies Allergy Verified 03/28/25 11:46 Vital Signs Vital Signs - 24 hr 04/01/25 08:27 Temperature 36.5 C Pulse Rate 74 Respiratory Rate 17 Blood Pressure 117/82 Pulse Oximetry 92 Oxygen Delivery Room Air Exam Const: General: comfortable and no acute distress HENMT: Mouth: Yes moist mucous membranes Eyes: General: appearance normal, both eyes and all related structures Sclera: sclerae normal Neck: Neck: supple Resp: Effort & Inspection: normal respiratory effort Auscultation: clear to auscultation bilaterally Cardio: Rate: regular rate Rhythm: regular rhythm Skin: General skin exam: normal color Neuro: Speech: normal speech Psych: Mental Status: mental status grossly normal Affect: normal affect H&P: Results Labs Labs: Short CBC 04/01/25 Range/Units 08:33 WBC 8.2 (4.5-10.0) K/mm3 Hgb 16.7 (14.0-18.0) g/dL Hct 49.0 (42.0-52.0) % Plt Count 201 (150-375) k/mm3 [facility] 04/01/25 08:33 Sodium 138 Potassium 3.9 Chloride 104 Carbon Dioxide 23 BUN 27 H Creatinine 0.71 Glucose 95 Calcium 9.2 Assessment and Plan Assessment and plan (1) Abnormal stress test: Code(s): R94.39 - Abnormal result of other cardiovascular function study Status: Acute Plan Proceed with [facility].
--- NOTE | 2025-04-01 09:44 | P.SEDATION_ITS ---
Moderate Sedation Note-Pt Data Patient Data Diagnosis: Coronary artery disease Present Complaint: Coronary artery disease Procedure to be performed/Plan: Coronary angiography, left heart cath, +/- PCI Allergies Allergy/AdvReac Type Severity Reaction Status Date / Time No Known Allergies Allergy Verified 03/28/25 11:46 Home Medications Medication Instructions Recorded Confirmed Type apixaban 5 mg tablet (Eliquis) 5 mg PO Q12H 03/28/25 03/28/25 History rosuvastatin 10 mg tablet 10 mg PO DAILY 03/28/25 03/28/25 History Sedation/Anesthesia: No previous sedation/anesthesia problems (including family history). [facility] Social History Social History Smoking status: Former smoker Tobacco type: pipe Alcohol intake: never Substance use: never Substance use type: does not use Living arrangements: with family Spiritual care concerns: No Mod Sed Physical Exam Physical Exam Pre Procedural Exam: Normal: Appearance, Lungs, Heart Rate, Heart Rhythm, Neuro Exam, Extremities and Skin Hours since solid foods: 12 Hours since liquid intake: 8 Mallampati Classification: class III Internal Medicine - PN: Obj Da Vital Signs Vital Signs: Vital Signs - 24 hr 04/01/25 08:27 Temperature 36.5 C Pulse Rate 74 Respiratory Rate 17 Blood Pressure 117/82 Pulse Oximetry 92 Oxygen Delivery Room Air Labs 04/01/25 08:33 04/01/25 08:33 Labs: Laboratory Results - last 24 hr 04/01/25 08:33 WBC 8.2 RBC 5.66 Hgb 16.7 Hct 49.0 MCV 86.6 MCH 29.5 MCHC 34.1 RDW 13.9 Plt Count 201 MPV 9.5 Sodium 138 Potassium 3.9 Chloride 104 Carbon Dioxide 23 Anion Gap 11 BUN 27 H Creatinine 0.71 Estim Creat Clear Calc 88 Estimated GFR > 60 Glucose 95 Calcium 9.2 ASA Classification/Sedation ASA Classification/Sedation ASA Class: III Emergent: No Risks: Risks, benefits and alternatives explained and patient/family accepted plan for sedation. Patient re-evaluated immediately prior to sedation.
--- NOTE | 2025-04-01 10:16 | WPDCARDPROC ---
Cardiac Cath Procedure Note Date of procedure:: 04/01/25 Performing physician:: CATHETERIZATION LABORATORY REPORT Procedure Date: 04/01/2025 Satellite Instruction Facilitator: Yuni Smith M.D., [facility] Referring Physician: Miguel Nelson M.D. Anesthesia: Versed and Fentanyl were ordered and given in my presence at 09:50, procedure ended at 10:11. Supervision of nurse monitored moderate sedation with Versed and Fentanyl was provided for 21 minutes. Total of Versed 1mg and Fentanyl 50mcg were administered by the Jig Bore Operator RN Rahel Lin. Pre-op Diagnosis: Coronary artery disease Post-op Diagnosis: Mild non-obstructive CAD Procedure(s): 1. Moderate sedation 2. Ultrasound-guided access of the right radial artery 3. Coronary angiography Access Site: Right radial artery Brief History and Clinical Indications: Patient is a 75 year old male who is referred for [facility] for abnormal stress test. All risks, benefits and alternatives to left heart catheterization with or without percutaneous coronary intervention was discussed at length with the patient. Risk of complications including but not limited to bleeding, infection, arrhythmia, stroke, worsening kidney function, blood loss, groin hematoma, limb loss, emergency coronary artery bypass grafting, and even were discussed with the patient and all questions were answered. The patient understood and wished to proceed. Time out called, patient name, date of , medical record number, allergies, procedure performed, identify Satellite Instruction Facilitator, patient and staff member concurred with accurate data, procedure carried on. Findings: LEFT HEART CATHETERIZATION FINDINGS: 1. Left main: The left main coronary artery is widely patent without any significant obstructive disease. 2. Left anterior descending: The LAD has mild diffuse disease. The diagonal branches have mild disease. No significant obstructive angiographic disease. 3. Ramus: Mild 30-40% disease in the proximal portion. 4. Left circumflex: The left circumflex artery and the main marginal branches have mild diffuse disease without any significant obstructive angiographic disease. 5. Right coronary artery: The RCA has mild diffuse disease without any significant obstructive angiographic disease. The RCA is the dominant vessel. Description of Procedure: Informed consent signed and placed in the chart. Patient transferred to cork slabs sawyer room. Prepped and draped in usual sterile fashion. 2% lidocaine injected subcutaneously in right wrist area. 22-gauge venipuncture catheter used to access the right radial artery under ultrasound guidance. 6-FR slender sheath placed in right radial artery. Nitroglycerine and Verapamil were given intraarterial through the sheath. Versacore wire advanced under fluoroscopy Unable to engage 5F Ultra 4 diagnostic catheter in left main or RCA. 5F FL 4 diagnostic catheter engaged Left Main Coronary Artery. 5F FR 4 diagnostic catheter engaged Right Coronary Artery Multiple orthogonal angiogram obtained and reviewed Unable to cross aortic valve with 5F Pigtail diagnostic catheter from right radial access to obtain LVEDP. Hemostasis was achieved by application of TR band. Disposition: Home Plan: The patient will be monitored in the recovery area. Discharge home after post-cath bed rest is completed. The above findings were discussed with the referring physician. Continue aggressive medical therapy and risk factor modification. Yuni Smith M.D. Interventional Cardiology
== END 2025-04-01 13:30 | disposition home or self-care (01) ==
PROVIDERS: Visit Provider Internal Medicine
PROC: (CPT 93454; principal; 2025-04-01 09:30)
DX: R94.39 Abnormal result of other cardiovascular function study (principal); I25.10 Atherosclerotic heart disease of native coronary artery without angina pectoris; I48.91 Unspecified atrial fibrillation; Z79.01 Long term (current) use of anticoagulants; Z87.891 Personal history of nicotine dependence
CPT/HCPCS: 36415; 80048; 85027; 93454; C1769; C1887; C1894; J1644; J2003; J2250; J3010; J7040